=== PATIENT | male | born 1960 | race Asian ===

== ENCOUNTER 2019-04-23 20:05 | Emergency (ER) | payer MEDICAID ==
[~2019-04-23] VITALS: Ht 175.3 cm; Wt 63.6 kg
[2019-04-23 20:10] VITALS: Ht 175.3 cm; Wt 63.6 kg
[2019-04-23] MEDS ORDERED: NORVASC5 MG PO (20:12)
[2019-04-23] MEDS ORDERED: MOBIC7.5 MG PO (20:13)
[2019-04-23 20:44] LABS: BASOPHILS 0.2 % (0-2); HEMATOCRIT 43.8 % (42.0-54.0); HEMOGLOBIN 15.2 g/dL (13.5-17.5); IMMATURE GRANULOCYTES 0.3 % (0-5); LYMPHOCYTES 24.5 % (15-50); MCH 31.2 pg (26.0-34.0); MCHC 34.7 g/dL (31.0-37.0); MCV 89.9 fL (80.0-100.0); MEAN PLATELET VOLUME 9.8 fL (7.4-10.4); MONOCYTES 6.5 % (2-11); NEUTROPHILS 66.5 % (40-80); PLATELET COUNT 245 10x3/uL (130-400); RBC 4.87 10x6/uL (4.20-6.10); RDW 12.3 % (11.5-14.5); WBC 9.5 10x3/uL (4.8-10.8)
[2019-04-23 20:53] LABS: INR 1.1 (0.85-1.17); PROTIME 13.7 SECONDS (11.6-15.0)
[2019-04-23 20:54] LABS: APTT 45.8 SECONDS (22.8-39.4)
[2019-04-23 21:16] LABS: ALBUMIN 3.9 g/dL (3.4-5.0); ANION GAP 14.7 mmol/L (8-16); BILIRUBIN - TOTAL 0.44 mg/dL (0.2-1.3); CALCIUM 8.8 mg/dL (8.5-10.1); CARBON DIOXIDE 24.9 mmol/L (21.0-32.0); CREATININE - SERUM 1.1 mg/dL (0.6-1.3); POTASSIUM - SERUM 3.6 mmol/L (3.5-5.1); PROTEIN - SERUM 7.9 g/dL (6.4-8.2)
[2019-04-23 21:41] LABS: APPEARANCE CLEAR (CLEAR); BILIRUBIN NEGATIVE (NEGATIVE); COLOR STRAW (YELLOW); GLUCOSE NEGATIVE (NEGATIVE); KETONE NEGATIVE (NEGATIVE); NITRITE NEGATIVE (NEGATIVE); PROTEIN NEGATIVE (NEGATIVE); UROBILINOGEN NORMAL (NORMAL)
[2019-04-23] MEDS ORDERED: HYDROCODON-ACE1 EAC7 PO (21:52)
[2019-04-23 22:35] VITALS: BP 156/93
== END 2019-04-23 22:35 | disposition home or self-care (01) ==
LOC: D.ER 20:05
PROVIDERS: Family Medicine
DX: S01.511A Laceration without foreign body of lip, initial encounter (principal); W11.XXXA Fall on and from ladder, initial encounter; S82.892A Other fracture of left lower leg, initial encounter for closed fracture

== ENCOUNTER 2019-04-26 10:06 | Day surgery (SDC) | payer MEDICAID ==
[~2019-04-26] VITALS: Ht 162.6 cm; Wt 63.5 kg
[~2019-04-26 10:06] MED LIST: HYDROCODON-ACE1 EAC7 PO; MOBIC7.5 MG PO; NORVASC5 MG PO
[2019-04-26 11:38] VITALS: Ht 162.6 cm; Wt 63.5 kg
[2019-04-26] MEDS ORDERED: PERCOCET 5-3251 TAB PO (15:28)
--- NOTE | 2019-04-26 17:02 | NUR ---
9370 IV REMOVED INSTRUCTIONS REVEIWED WITH DAUGHTER AND CRUTCH TRAINING DONE IN ROOM WITH RETURN DEMONSTRATION. PAIN LEVEL A 5 ON DISCHARGE
--- NOTE | 2019-04-26 23:07 | OP ---
PATIENT NAME: ASHLEIGH KILGORE MEDICAL RECORD: [id number] :64 LOCATION:[facility] ADMISSION DATE: SURGEON: THOMAS BOUDREAUX DO DATE OF OPERATION: 04/26/2019 PROCEDURE PERFORMED: Left ankle medial malleolus fracture. INDICATIONS: Mr. Kilgore is a 59-year-old male who fell off a ladder Thursday and sustained a medial malleolus fracture that was displaced. He was seen in my clinic, seen yesterday. Informed him due to displacement, we need to put some screws in it and get fix back. He was okay with that and aware of the risk of infection, bleeding, damage to nerves and vessels, need for surgery, swelling continued pain, nonunion, malunion, need for further surgery, for the fracture and blood clots and even . He signed consent. SURGEON: Thomas Boudreaux DO PROCEDURE PERFORMED: The patient was taken to the operative suite, laid in supine position. After getting a block by anesthesia in the preoperative area, given 2 grams of Ancef. The left lower extremity was then prepped and draped in sterile fashion. He was sedated and LMA was placed. Time out was performed and everybody was in agreeance the correct side, site, patient, and procedure. Then attempted a closed reduction with percutaneous pinning, it did not reduce, so a small incision was made over the medial malleolus. A curvilinear fracture was reduced. K-wires were placed up and through the fracture reduced it nicely and then two 4.0 cannulated fully threaded screws were placed and 40 mm in length and reduced nicely with good reduction in AP, lateral and mortise view and then the site was irrigated and closed with 2-0 Vicryl in inverted interrupted fashion, 4-0 Monocryl in a horizontal mattress fashion on the skin. Adaptic, 4 x 4's, ABDs, cast padding and a 4 x 30 splint were placed posterior was placed and secured with 6-inch Brian wrap. He was awakened and taken to recovery in stable condition. Blood loss approximately 25 mL. COMPLICATIONS: None. TRANSINT:[id number] Voice Confirmation ID: [id number] DOCUMENT ID: [id number] THOMAS BOUDREAUX DO at 9086 CC: [id number] DICTATION DATE: 04/26/19 1531 AUTOMATIC ENGRAVER: 04/26/19 2251 [facility] [place] 04/26/19 [facility] [address] [id number]
== END 2019-04-26 16:50 | disposition home or self-care (01) ==
LOC: D.OPS 10:06
PROVIDERS: ATTEND Orthopaedic Surgery
DX: S82.52XA Displaced fracture of medial malleolus of left tibia, initial encounter for closed fracture (principal); W11.XXXA Fall on and from ladder, initial encounter